=== PATIENT | male | born 1995 | race Caucasian/White ===

== ENCOUNTER 2018-08-17 19:52 | Emergency (ER) | payer BC ==
[2018-08-17] MEDS ORDERED: DERMABOND SKIN ADHESIVE TOP ONE (20:16)
[2018-08-17] MEDS ORDERED: TETANUS & DIPHTHERIA TOX,ADULT 0.5 ML VIAL ONE (20:16)
[2018-08-17] MEDS ORDERED: LIDOCAINE 1% MPF 5 ML VIAL ONE (20:25)
--- NOTE | 2018-08-17 20:35 | ER ---
Nurse's Notes [facility] Name: Manuel Queen Age: 23 yrs Sex: Male : 1995 Arrival Date: 08/17/2018 Time: 19:55 Bed 10 Private MD: Diagnosis: Laceration without foreign body, left lower leg Presentation: 08/17 19:59 Presenting complaint: Patient states: laceration to left leg, bleeding controlled. pt ak1 cut his leg while at work at 1430 with pocket knife. Transition of care: patient was not received from another setting of care. Complicating Factors: There are no complicating factors for this patient. Onset of symptoms was August 17, 2018. Risk Assessment: Do you want to hurt yourself or someone else? Patient reports no desire to harm self or others. Initial Sepsis Screen: Does the patient meet any 2 criteria? No. Patient's initial sepsis screen is negative. Does the patient have a suspected source of infection? No. Patient's initial sepsis screen is negative. Care prior to arrival: None. 19:59 Method Of Arrival: Ambulatory ak1 19:59 Acuity: JOHANNA 4 ak1 Triage Assessment: 20:01 General: Appears in no apparent distress. Behavior is calm, cooperative. ak1 Historical: - Allergies: 20:01 No Known Allergies; ak1 - Home Meds: 20:01 Synthroid 250 mcg tab Oral tab 1 tab once daily [Active]; Lantus 5 units daily Sub-Q ak1 soln [Active]; - PMHx: 20:01 Hypothyroidism; ak1 - PSHx: 20:01 Appendectomy; Tonsillectomy; ak1 - Immunization history:: Adult Immunizations unknown, Last tetanus immunization: unknown. - Social history:: Smoking status: Patient/guardian denies using tobacco, Patient/guardian denies using alcohol. - Ebola Screening: : No symptoms or risks identified at this time. Screenin:20 Abuse screen: Denies threats or abuse. Denies injuries from another. Nutritional aj screening: No deficits noted. Tuberculosis screening: No symptoms or risk factors identified. Fall Risk None identified. Assessment: 20:20 General: Appears in no apparent distress. comfortable, Behavior is calm, cooperative, aj appropriate for age. Pain: Denies pain. Neuro: Level of Consciousness is awake, alert, obeys commands, Oriented to person, place, time, situation, Appropriate for age. Respiratory: Airway is patent Respiratory effort is even, unlabored, Respiratory pattern is regular, symmetrical. Derm: Skin is intact, is healthy with good turgor, Skin is pink, warm \T\ dry. normal. Musculoskeletal: Circulation, motion, and sensation intact. Range of motion: intact in all extremities. Injury Description: Laceration sustained to medial aspect of left calf is 0.5 to 2.5 cm long, was sustained 4-6 hours ago. Vital Signs: 20:01 BP 115 / 80; Pulse 72; Resp 16; Temp 98.3(O); Pulse Ox 100% on R/A; Weight 99.79 kg ak1 (R); Height 5 ft. 9 in. (175.26 cm) (R); Pain 0/10; 20:01 Body Mass Index 32.49 (99.79 kg, 175.26 cm) ak1 ED Course: 19:55 Patient arrived in ED. am2 20:00 Triage completed. ak1 20:01 Arm band placed on Patient placed in an exam room, on a stretcher, Patient notified of ak1 wait time. 20:05 Shyanne Olivares, VAUGHN is Primary Nurse. aj 20:06 Mahendra Chan NP is PHCP. pm1 20:06 Karthik Reyes MD is Attending Physician. pm1 20:20 Patient has correct armband on for positive identification. aj 20:20 Patient did not have IV access during this emergency room visit. aj 20:34 Assist provider with laceration repair on medial aspect of left calf that was 2.5 cm. aj or less using sutures. Set up tray. Performed by Mahendra Chan PLAYROOM ATTENDANT Dressed with band aid, Patient tolerated well. Administered Medications: 20:11 Drug: Tetanus-Diphtheria Toxoid Adult 0.5 ml {Legal Activity Adjudicator: [employer]. Exp: arcelia 08/08/2020. Lot #: [id number]. } Route: IM; Site: right deltoid; 20:39 Follow up: Response: No adverse reaction aj 20:34 Drug: Lidocaine (1 %) 5 ml Volume: 5 ml; Route: Infiltration; aj Outcome: 20:33 Discharge ordered by . pm1 20:39 Discharged to home ambulatory, with family. aj 20:39 Condition: good 20:39 Discharge instructions given to patient, Instructed on discharge instructions, follow up and referral plans. medication usage, Demonstrated understanding of instructions, follow-up care, medications, Prescriptions given X 1. 20:39 Patient left the ED. arcelia Signatures: Shyanne Olivares RN Elysia Freeman RN RN ak1 Mahendra Chan, PLAYROOM ATTENDANT PLAYROOM ATTENDANT pm1 Shyanne Caldera am2
--- NOTE | 2018-08-17 20:35 | EDPHYS ---
Physician Documentation [facility] Name: Manuel Queen Age: 23 yrs Sex: Male : 1995 Arrival Date: 08/17/2018 Time: 19:55 Bed 10 Private MD: ED Physician Karthik Reyes HPI: 08/17 20:15 This 23 yrs old Male presents to ER via Ambulatory with complaints of pm1 Laceration To Left Leg. 20:15 The patient has a laceration occurred at home, and there are no complicating factors. pm1 The injury was accidental. The laceration(s) is(are) located on the medial aspect of left calf. Onset: The symptoms/episode began/occurred today. Associated signs and symptoms: Pertinent negatives: deformity, dizziness, heavy bleeding, numbness distal to injury, suspected foreign body. The patient has not experienced similar symptoms in the past. The patient has not recently seen a physician. 20:15 Cutting twine with a new hook knife and accidentally cut his left lower leg. pm1 Historical: - Allergies: 20:01 No Known Allergies; ak1 - Home Meds: 20:01 Synthroid 250 mcg tab Oral tab 1 tab once daily [Active]; Lantus 5 units daily Sub-Q ak1 soln [Active]; - PMHx: 20:01 Hypothyroidism; ak1 - PSHx: 20:01 Appendectomy; Tonsillectomy; ak1 - Immunization history:: Adult Immunizations unknown, Last tetanus immunization: unknown. - Social history:: Smoking status: Patient/guardian denies using tobacco, Patient/guardian denies using alcohol. - Ebola Screening: : No symptoms or risks identified at this time. ROS: 20:15 Constitutional: Negative for fever, chills, and weight loss, Eyes: Negative for injury, pm1 pain, redness, and discharge, ENT: Negative for injury, pain, and discharge, Neck: Negative for injury, pain, and swelling, Cardiovascular: Negative for chest pain, palpitations, and edema, Respiratory: Negative for shortness of breath, cough, wheezing, and pleuritic chest pain, Abdomen/GI: Negative for abdominal pain, nausea, vomiting, diarrhea, and constipation, Back: Negative for injury and pain, : Negative for injury, bleeding, discharge, and swelling, MS/Extremity: Negative for injury and deformity. 20:15 Neuro: Negative for headache, weakness, numbness, tingling, and seizure. 20:15 Skin: Positive for laceration(s), of the medial aspect of left calf. Exam: 20:34 Constitutional: This is a well developed, well nourished patient who is awake, alert, pm1 and in no acute distress. Head/Face: Normocephalic, atraumatic. Eyes: Pupils equal round and reactive to light, extra-ocular motions intact. Lids and lashes normal. Conjunctiva and sclera are non-icteric and not injected. Cornea within normal limits. Periorbital areas with no swelling, redness, or edema. ENT: Nares patent. No nasal discharge, no septal abnormalities noted. Tympanic membranes are normal and external auditory canals are clear. Oropharynx with no redness, swelling, or masses, exudates, or evidence of obstruction, uvula midline. Mucous membranes moist. Neck: Trachea midline, no thyromegaly or masses palpated, and no cervical lymphadenopathy. Supple, full range of motion without nuchal rigidity, or vertebral point tenderness. No Meningismus. Chest/axilla: Normal chest wall appearance and motion. Nontender with no deformity. No lesions are appreciated. Cardiovascular: Regular rate and rhythm with a normal S1 and S2. No gallops, murmurs, or rubs. Normal PMI, no JVD. No pulse deficits. Respiratory: Lungs have equal breath sounds bilaterally, clear to auscultation and percussion. No rales, rhonchi or wheezes noted. No increased work of breathing, no retractions or nasal flaring. Abdomen/GI: Soft, non-tender, with normal bowel sounds. No distension or tympany. No guarding or rebound. No evidence of tenderness throughout. Back: No spinal tenderness. No costovertebral tenderness. Full range of motion. 20:34 MS/ Extremity: Pulses equal, no cyanosis. Neurovascular intact. Full, normal range of motion. 20:34 Skin: Appearance: normal except for affected area, injury, laceration(s), the wound is approximately 2 cm(s), with a depth of 1 cm(s), of the medial aspect of left calf. 20:34 Neuro: Orientation: is normal, Motor: is normal, moves all fours. Vital Signs: 20:01 BP 115 / 80; Pulse 72; Resp 16; Temp 98.3(O); Pulse Ox 100% on R/A; Weight 99.79 kg ak1 (R); Height 5 ft. 9 in. (175.26 cm) (R); Pain 0/10; 20:01 Body Mass Index 32.49 (99.79 kg, 175.26 cm) ak1 Laceration: 20:32 Wound Repair of 2cm ( 0.8in ) subcutaneous laceration to medial aspect of left calf. pm1 Linear shaped.. Distal neuro/vascular/tendon intact. Anesthesia: Local anesthetic administered with 3 mls of 1% lidocaine. Wound prep: Extensive cleansing with hibiclenz by nurse, Wound irrigation with saline by nurse, Wound explored extensively, Copious irrigation. Skin closed with 4 4-0 Prolene using simple sutures and sterile technique. Dressed with Bacitracin, 4x4's. Patient tolerated well. MDM: 20:06 Patient medically screened. pm1 20:32 Data reviewed: vital signs. Data interpreted: Pulse oximetry: on room air is 100 %. pm1 Interpretation: normal. Counseling: I had a detailed discussion with the patient and/or guardian regarding: the historical points, exam findings, and any diagnostic results supporting the discharge/admit diagnosis, the need for outpatient follow up, to return to the emergency department if symptoms worsen or persist or if there are any questions or concerns that arise at home. 08/17 20:15 Order name: Prolene, Sutures; Complete Time: 20:34 pm1 08/17 20:15 Order name: Dressing - Wound; Complete Time: 20:20 pm1 08/17 20:15 Order name: Gloves, Sterile; Complete Time: 20:20 pm1 08/17 20:15 Order name: Setup Suture Tray; Complete Time: 20:20 pm1 Administered Medications: 20:11 Drug: Tetanus-Diphtheria Toxoid Adult 0.5 ml {Greaser Helper: [employer]. Exp: aj 08/08/2020. Lot #: [id number]. } Route: IM; Site: right deltoid; 20:39 Follow up: Response: No adverse reaction arcelia 20:34 Drug: Lidocaine (1 %) 5 ml Volume: 5 ml; Route: Infiltration; arcelia Disposition: 08/18 05:41 Co-signature as Attending Physician, Karthik Reyes MD I agree with the assessment and tw4 plan of care. Disposition: 08/17/18 20:33 Discharged to Home. Impression: Laceration without foreign body, left lower leg. - Condition is Stable. - Discharge Instructions: Laceration Care, Adult. - Prescriptions for Keflex 500 mg Oral Capsule - take 1 capsule by ORAL route every 6 hours for 10 days; 40 capsule. - Work release form, Medication Reconciliation Form, Thank You Letter, Antibiotic Education, Prescription Opioid Use form. - Follow up: Emergency Department; When: As needed; Reason: Worsening of condition. Follow up: Private Physician; When: 10 - 14 days; Reason: Recheck today's complaints, Continuance of care, Staple/Suture removal, Re-evaluation by your physician. - Problem is new. - Symptoms have improved. Signatures: Shyanne Olviares, RN RN aj Elysia Rivas RN RN ak1 Mahendra Chan, WIND OPERATIONS SUPERVISOR WIND OPERATIONS SUPERVISOR pm1 Karthik Reyes MD MD tw4 Corrections: (The following items were deleted from the chart) 08/17 20:39 20:33 08/17/2018 20:33 Discharged to Home. Impression: Laceration without foreign body, aj left lower leg. Condition is Stable. Forms are Medication Reconciliation Form, Thank You Letter, Antibiotic Education, Prescription Opioid Use. Follow up: Emergency Department; When: As needed; Reason: Worsening of condition. Follow up: Private Physician; When: 10 - 14 days; Reason: Recheck today's complaints, Continuance of care, Staple/Suture removal, Re-evaluation by your physician. Problem is new. Symptoms have improved. pm1
== END 2018-08-17 20:39 | disposition home or self-care (01) ==
LOC: ER 19:52
PROC: 0JQP0ZZ Repair Left Lower Leg Subcutaneous Tissue and Fascia, Open Approach (ICD-10-PCS; principal; 2018-08-17)
DX: S81.812A Laceration without foreign body, left lower leg, initial encounter (principal); W26.0XXA Contact with knife, initial encounter; Y93.89 Activity, other specified; Y92.009 Unspecified place in unspecified non-institutional (private) residence as the place of occurrence of the external cause; Z23 Encounter for immunization; E03.9 Hypothyroidism, unspecified
CPT/HCPCS: 90714; 99283

== ENCOUNTER 2018-09-02 18:06 | Emergency (ER) | payer BC ==
--- NOTE | 2018-09-02 20:07 | ER ---
Nurse's Notes [facility] Name: Manuel Queen Age: 23 yrs Sex: Male : 1995 Arrival Date: 09/02/2018 Time: 18:08 Bed 10 Private MD: Diagnosis: Encounter for removal of sutures Presentation: 09/02 18:41 Presenting complaint: Sutures to left knee 2 weeks ago, here for removal. Transition of hb care: patient was not received from another setting of care. Onset of symptoms was September 02, 2018. Risk Assessment: Do you want to hurt yourself or someone else? Patient reports no desire to harm self or others. Initial Sepsis Screen: Does the patient meet any 2 criteria? No. Patient's initial sepsis screen is negative. Does the patient have a suspected source of infection? No. Patient's initial sepsis screen is negative. Care prior to arrival: None. 18:41 Method Of Arrival: Ambulatory hb 18:41 Acuity: JOHANNA 4 hb Historical: - Allergies: 18:42 No Known Allergies; hb - Home Meds: 18:42 Lantus 5 units daily Sub-Q soln [Active]; Synthroid 250 mcg tab Oral tab 1 tab once hb daily [Active]; - PMHx: 18:42 Hypothyroidism; hb - PSHx: 18:42 Appendectomy; Tonsillectomy; hb - Immunization history:: Adult Immunizations up to date. - Social history:: Smoking status: Patient/guardian denies using tobacco. - Ebola Screening: : No symptoms or risks identified at this time. Screenin:50 Abuse screen: Denies threats or abuse. Nutritional screening: No deficits noted. fc Tuberculosis screening: No symptoms or risk factors identified. Fall Risk None identified. Assessment: 19:50 General: Appears comfortable, well groomed, Behavior is calm, cooperative, appropriate fc for age. Pain: Denies pain. Neuro: Level of Consciousness is awake, alert, obeys commands, Oriented to person, place, time, situation, Appropriate for age. Cardiovascular: No deficits noted. Respiratory: No deficits noted. GI: No signs and/or symptoms were reported involving the gastrointestinal system. : No deficits noted. EENT: No deficits noted. Derm: Skin is pink, warm \T\ dry. Musculoskeletal: Circulation, motion, and sensation intact. Capillary refill < 3 seconds, Range of motion: intact in all extremities. Injury Description: Laceration sustained to medial aspect of left knee is clean, 2.6 to 7.5 cm long, 4 sutures intact. 20:00 Reassessment: Mahendra HOTEL ADMINISTRATIVE ASSISTANT in to see and examine pt. Sutures removed by him. fc Vital Signs: 18:42 BP 107 / 82; Pulse 77; Resp 16; Temp 98.6; Pulse Ox 100% on R/A; Pain 0/10; hb ED Course: 18:08 Patient arrived in ED. as 18:41 Triage completed. hb 18:41 Arm band placed on. hb 19:40 Mahendra Chan NP is PHCP. pm1 19:40 Sergei Holley MD is Attending Physician. pm1 19:50 Patient has correct armband on for positive identification. Bed in low position. Call fc light in reach. 19:50 No provider procedures requiring assistance completed. Patient did not have IV access fc during this emergency room visit. 20:08 Syd Ricci RN is Primary Nurse. mg2 Administered Medications: No medications were administered Outcome: 20:06 Discharge ordered by MD. pm1 20:08 Discharged to home ambulatory. fc 20:08 Condition: good 20:08 Discharge instructions given to patient, Instructed on discharge instructions, follow up and referral plans. wound care, Demonstrated understanding of instructions, follow-up care, wound care, Prescriptions given X none 20:08 No charge visit due to suture removal. 20:10 Patient left the ED. Signatures: Kourtney Bates RN RN Linnea Stovall as Mahendra Chna NP HOTEL ADMINISTRATIVE ASSISTANT pm1 Rosa Wright RN RN Syd Ricci RN RN mg2
--- NOTE | 2018-09-02 20:07 | EDPHYS ---
Physician Documentation [facility] Name: Manuel Queen Age: 23 yrs Sex: Male : 1995 Arrival Date: 09/02/2018 Time: 18:08 Bed 10 Private MD: ED Physician Sergei Holley HPI: 09/02 20:05 This 23 yrs old Male presents to ER via Ambulatory with complaints of Suture pm1 Removal. 20:05 The patient has sutures on the medial aspect of left knee. Previous treatment: pm1 Treatment type: The patient's original treatment included sutures, Outpatient prescription(s): The patient was given prescription(s) for Keflex, 14 days ago. Sutures/nj progress: The patient has no c/o's. The wound is well-healing with no redness, swelling, discharge, or dehiscence reported. The patient has not experienced similar symptoms in the past. The patient has been recently seen at the [facility] Emergency Department, for similar complaints sutured 14 days ago. Historical: - Allergies: 18:42 No Known Allergies; hb - Home Meds: 18:42 Lantus 5 units daily Sub-Q soln [Active]; Synthroid 250 mcg tab Oral tab 1 tab once hb daily [Active]; - PMHx: 18:42 Hypothyroidism; hb - PSHx: 18:42 Appendectomy; Tonsillectomy; hb - Immunization history:: Adult Immunizations up to date. - Social history:: Smoking status: Patient/guardian denies using tobacco. - Ebola Screening: : No symptoms or risks identified at this time. ROS: 20:05 Constitutional: Negative for fever, chills, and weight loss, Eyes: Negative for injury, pm1 pain, redness, and discharge, ENT: Negative for injury, pain, and discharge, Neck: Negative for injury, pain, and swelling, Cardiovascular: Negative for chest pain, palpitations, and edema, Respiratory: Negative for shortness of breath, cough, wheezing, and pleuritic chest pain, Abdomen/GI: Negative for abdominal pain, nausea, vomiting, diarrhea, and constipation, Back: Negative for injury and pain, MS/Extremity: Negative for injury and deformity, Skin: Negative for injury, rash, and discoloration, Neuro: Negative for headache, weakness, numbness, tingling, and seizure. Exam: 20:05 Constitutional: This is a well developed, well nourished patient who is awake, alert, pm1 and in no acute distress. Head/Face: Normocephalic, atraumatic. Neck: Trachea midline, no thyromegaly or masses palpated, and no cervical lymphadenopathy. Supple, full range of motion without nuchal rigidity, or vertebral point tenderness. No Meningismus. Chest/axilla: Normal chest wall appearance and motion. Nontender with no deformity. No lesions are appreciated. Cardiovascular: Regular rate and rhythm with a normal S1 and S2. No gallops, murmurs, or rubs. Normal PMI, no JVD. No pulse deficits. Respiratory: Lungs have equal breath sounds bilaterally, clear to auscultation and percussion. No rales, rhonchi or wheezes noted. No increased work of breathing, no retractions or nasal flaring. Abdomen/GI: Soft, non-tender, with normal bowel sounds. No distension or tympany. No guarding or rebound. No evidence of tenderness throughout. Back: No spinal tenderness. No costovertebral tenderness. Full range of motion. Skin: Warm, dry with normal turgor. Normal color with no rashes, no lesions, and no evidence of cellulitis. MS/ Extremity: Pulses equal, no cyanosis. Neurovascular intact. Full, normal range of motion. 20:05 Neuro: Orientation: is normal, Motor: is normal, Gait: is steady, at a normal pace, without difficulty. Vital Signs: 18:42 BP 107 / 82; Pulse 77; Resp 16; Temp 98.6; Pulse Ox 100% on R/A; Pain 0/10; hb Procedures: 20:05 Suture/Staple removal: Removed 4 sutures, from medial aspect of left knee, site appears pm1 well healed, Patient tolerated well. MDM: 19:50 Patient medically screened. [facility] 20:05 Data reviewed: vital signs. Data interpreted: Pulse oximetry: on room air is 100 %. pm1 Interpretation: normal. Counseling: I had a detailed discussion with the patient and/or guardian regarding: the historical points, exam findings, and any diagnostic results supporting the discharge/admit diagnosis, to return to the emergency department if symptoms worsen or persist or if there are any questions or concerns that arise at home. Administered Medications: No medications were administered Disposition: 09/03 07:30 Co-signature as Attending Physician, Sergei Holley MD I agree with the assessment and [facility] plan of care. Disposition: 09/02/18 20:06 Discharged to Home. Impression: Encounter for removal of sutures. - Condition is Stable. - Discharge Instructions: Suture Removal, Care After. - Medication Reconciliation Form, Thank You Letter form. - Follow up: Emergency Department; When: As needed; Reason: Worsening of condition. Follow up: Private Physician; When: As needed; Reason: Recheck today's complaints, Continuance of care, Re-evaluation by your physician. - Problem is new. - Symptoms are resolved. Signatures: Sergei Holley MD MD cha Chretien, Felicia, RN RN Mahendra Serna, EFRAIN SEAWEED HARVESTER pm1 Rosa Wright RN RN Corrections: (The following items were deleted from the chart) 09/02 20:10 20:06 09/02/2018 20:06 Discharged to Home. Impression: Encounter for removal of fc sutures. Condition is Stable. Forms are Medication Reconciliation Form, Thank You Letter, Antibiotic Education, Prescription Opioid Use. Follow up: Emergency Department; When: As needed; Reason: Worsening of condition. Follow up: Private Physician; When: As needed; Reason: Recheck today's complaints, Continuance of care, Re-evaluation by your physician. Problem is new. Symptoms are resolved. pm1
== END 2018-09-02 20:10 | disposition home or self-care (01) ==
LOC: ER 18:06
DX: S81.812D Laceration without foreign body, left lower leg, subsequent encounter (principal); W26.0XXD Contact with knife, subsequent encounter; Y93.89 Activity, other specified; Y92.009 Unspecified place in unspecified non-institutional (private) residence as the place of occurrence of the external cause; E03.9 Hypothyroidism, unspecified; Z79.899 Other long term (current) drug therapy